=== PATIENT | female | born 1990 | race Asian ===

== ENCOUNTER 2019-12-12 07:31 | Emergency (ER) | payer OTHER ==
[~2019-12-12] VITALS: Ht 157.5 cm; Wt 59.0 kg
[2019-12-12 08:00] VITALS: BP_SYST 128
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
--- NOTE | 2019-12-12 08:06 | NUR ---
Patient triaged and placed in waiting room. VSS and patient appears in no acute distress at this time. Accompanied by , awaiting available bed, and MD notified of need for MSE.
--- NOTE | 2019-12-12 08:10 | NUR ---
ER at bedside examining patient.
--- NOTE | 2019-12-12 08:12 | NUR ---
Patient to ER bed 3 to gown for evaluation. Side rails up. Report given to STEFFANY Campbell.
--- NOTE | 2019-12-12 08:20 | NUR ---
bacitracin and dressing applied to the affected area. pt tolerated well.
[2019-12-12 08:25] VITALS: BP_SYST 128
--- NOTE | 2019-12-12 08:27 | NUR ---
Patient given written and verbal discharge instructions and verbalizes understanding. ER MD discussed with patient the results and treatment provided. Patient in stable condition. ID arm band removed. Rx of Bacitracin and Custar given. Patient educated on pain management and to follow up with PMD. Pain Scale 3/10. Opportunity for questions provided and answered. Medication side effect fact sheet provided.
[2019-12-12] MEDS ORDERED: BACITRACIN 1 GM OINT TP ONE ×2 (08:30→08:47)
== END 2019-12-12 08:25 | disposition home or self-care (01) ==
LOC: SED 07:31
DX: T24.211A Burn of second degree of right thigh, initial encounter (principal); X11.8XXA Contact with other hot tap-water, initial encounter; Y93.89 Activity, other specified; Y92.89 Other specified places as the place of occurrence of the external cause; Y99.8 Other external cause status
CPT/HCPCS: 99284

== ENCOUNTER 2019-12-14 08:28 | Emergency (ER) | payer OTHER ==
[~2019-12-14] VITALS: Ht 157.5 cm; Wt 59.0 kg
--- NOTE | 2019-12-14 08:38 | NUR ---
Patient to ER bed 5 to gown for evaluation. Side rails up.
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
[2019-12-14 08:42] VITALS: BP_SYST 128
--- NOTE | 2019-12-14 08:44 | NUR ---
ER at bedside examining patient.
[2019-12-14 08:55] VITALS: BP_SYST 128
--- NOTE | 2019-12-14 08:55 | NUR ---
Patient given written and verbal discharge instructions and verbalizes understanding. ER MD discussed with patient the results and treatment provided. Patient in stable condition. ID arm band removed. Patient educated on pain management and to follow up with PMD. Pain Scale 0/10. Opportunity for questions provided and answered. Medication side effect fact sheet provided.
== END 2019-12-14 08:55 | disposition home or self-care (01) ==
LOC: SED 08:28
DX: T24.212D Burn of second degree of left thigh, subsequent encounter (principal); X11.8XXD Contact with other hot tap-water, subsequent encounter
CPT/HCPCS: 99281